=== PATIENT | male | born 1955 | race Caucasian/White ===

== ENCOUNTER 2020-08-23 15:10 | Outpatient (CLI) | payer OTHER | END 2020-08-23 15:11 | disposition home or self-care (01) | LOC: CSHCT 15:10 | PROVIDERS: ATTEND Family Medicine | DX: R91.8 Other nonspecific abnormal finding of lung field (principal); N20.0 Calculus of kidney | CPT/HCPCS: 71250 ==

== ENCOUNTER 2022-04-24 11:10 | Outpatient (CLI) | payer OTHER | END 2022-04-24 11:11 | disposition home or self-care (01) | LOC: CSHMRI 11:10 | PROVIDERS: ATTEND Urology | DX: C61 Malignant neoplasm of prostate (principal); Q53.112 Unilateral inguinal testis | CPT/HCPCS: 72197; 82565 ==

== ENCOUNTER 2023-04-15 12:50 | Outpatient (CLI) | payer MEDICARE | END 2023-04-15 12:51 | disposition home or self-care (01) | LOC: CSHMRI 12:50 | PROVIDERS: ATTEND Urology | DX: C61 Malignant neoplasm of prostate (principal) | CPT/HCPCS: 72197; 82565 ==